=== PATIENT | female | born 1985 | race Caucasian/White ===

== ENCOUNTER 2022-10-31 16:26 | Emergency (ER) | payer OTHER ==
[2022-10-31 17:14] VITALS: TEMP 98
[2022-10-31] MEDS ORDERED: Sodium Chloride 0.9% 1000 ML 1,000 ML IV STA (17:22)
[2022-10-31] MEDS ORDERED: Zofran 4 MG/2 ML VIAL IV ONE (17:22)
[2022-10-31] MEDS ORDERED: Zofran 4 MG/2 ML VIAL ONE (17:32)
[2022-10-31] MEDS ORDERED: Sodium Chloride 0.9% 1000 ML 1,000 ML ONE (17:32)
--- NOTE | 2022-10-31 17:48 | ERPHSYRPT ---
- History of Present Illness Time Seen by Provider: 10/31/22 17:42 Source: patient, family Exam Limitations: no limitations Patient Subjective Stated Complaint: C/O nausea, headache, loss of taste since . Triage Nursing Assessment: Patient is alert and oriented. No SOB. No cough noted at this time during assessment. Abdomen is not tender upon palpation. Bowel sounds present. Skin tone normal. HOFFMAN WNL. Physician History: pt has been vomiting and has fever past few days and exposed to COvid. No abd pain. Nontender without peritoneal signs, mass or distension. chest clear. ht reg without M. No rash. Normal neuro and mental status. Hx confirmed from family helping pt to recall details as independent source. Discussed riskls/benefits of CBC. CMP, Lipase, UA, Ondansatron, IVF, Amylase, Lactate, and they wish to proceed and agree they do not wish CT imaging at this time since no abd pain or findings. These were ordered, and results discussed with pt and family as received. Timing/Duration: day(s) Severity: moderate Associated Symptoms: nausea, headaches Allergies/Adverse Reactions: aspirin Allergy (Verified 10/31/22 17:04) cephalexin [From Keflex] Allergy (Verified 10/31/22 17:04) Penicillins Allergy (Verified 10/31/22 17:04) Home Medications: No Reportable Medications [No Reported Medications] 10/31/22 [History] Hx Tetanus, Diphtheria Vaccination/Date Given: Yes Hx Influenza Vaccination/Date Given: No Hx Pneumococcal Vaccination/Date Given: No Immunizations Up to Date: Yes Travel Risk - International Travel Have you traveled outside of the country in past 3 weeks: No - Coronavirus Screening Are you exhibiting any of the following symptoms?: Yes Symptoms: Cough: New Onset, Vomiting/Diarrhea, Loss of Taste or Smell, Headaches/Body Aches/Fatigue Close contact with a COVID-19 positive Pt in past 14-21 Days: Yes - Vaccine Status Have you recieved a Covid-19 vaccination: No - Review of Systems Constitutional: Fever, No Chills Eyes: No Symptoms Ears, Nose, & Throat: No Symptoms Respiratory: No Cough, No Dyspnea Cardiac: No Chest Pain, No Edema, No Syncope Abdominal/Gastrointestinal: Nausea, Vomiting, No Abdominal Pain, No Diarrhea Genitourinary Symptoms: No Dysuria Musculoskeletal: No Back Pain, No Neck Pain Skin: No Rash Neurological: Headache, No Dizziness, No Focal Weakness, No Sensory Changes Psychological: No Symptoms Endocrine: No Symptoms Hematologic/Lymphatic: No Symptoms Immunological/Allergic: No Symptoms All Other Systems: Reviewed and Negative - Past Medical History Pertinent Past Medical History: Yes GI Medical History: Gallbladder Disease 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 - Past Surgical History Past Surgical History: Yes Gastrointestinal: Cholecystectomy Female Surgical History: Tubal Ligation Other Surgical History: back (spider bite with wound vac) - Social History Smoking Status: Current every day smoker Exposure to second hand smoke: Yes Drug Use: none Patient Lives Alone: No - Female History Hx Now: No (tubes removed) - Nursing Vital Signs Nursing Vital Signs: Initial Vital Signs Temperature 98 F 10/31/22 16:27 Pulse Rate 70 10/31/22 16:27 Respiratory Rate 18 10/31/22 16:27 Blood Pressure 133/92 10/31/22 16:27 O2 Sat by Pulse Oximetry 99 10/31/22 16:27 Pain Scale Pain Intensity 8 - Physical Exam General Appearance: no apparent distress, alert Eye Exam: PERRL/EOMI, eyes nml inspection Ears, Nose, Throat Exam: normal ENT inspection, TMs normal, pharynx normal, moist mucous membranes Neck Exam: normal inspection, non-tender, supple, full range of motion Respiratory Exam: normal breath sounds, lungs clear, No respiratory distress Cardiovascular Exam: regular rate/rhythm, normal heart sounds, normal peripheral pulses Gastrointestinal/Abdomen Exam: soft, normal bowel sounds, No tenderness, No mass Pelvic Exam: deferred Rectal Exam: deferred Back Exam: normal inspection, normal range of motion, No CVA tenderness, No vertebral tenderness Extremity Exam: normal inspection, normal range of motion, pelvis stable Neurologic Exam: alert, oriented x 3, cooperative, normal mood/affect, nml cerebellar function, nml station & gait, sensation nml, No motor deficits Skin Exam: normal color, warm, dry, No rash Lymphatic Exam: No adenopathy SpO2 Interpretation: normal SpO2: 98 O2 Delivery: Room Air - Course Nursing assessment & vital signs reviewed: Yes Ordered Tests: Active Orders 24 hr Category Date Time Status IV Insertion STAT Care 10/31/22 17:22 Active AMYLASE Stat Lab 10/31/22 17:35 Completed CBC W DIFF Stat Lab 10/31/22 17:35 Completed HCG QUALITATIVE, SERUM Stat Lab 10/31/22 17:35 Completed Hepatic Function Panel Stat Lab 10/31/22 17:35 Completed LIPASE Stat Lab 10/31/22 17:35 Completed Lactic Acid Stat Lab 10/31/22 17:32 Completed Medication Summary Discontinued Medications Generic Name Dose Route Start Last Admin Trade Name Jaceq PRN Reason Stop Dose Admin Diphenhydramine HCl 25 mg 10/31/22 19:17 10/31/22 19:36 Diphenhydramine Hcl 50 Mg/Ml Vial IV 10/31/22 19:18 25 mg STAT ONE Administration Diphenhydramine HCl Confirm 10/31/22 19:34 Diphenhydramine Hcl 50 Mg/Ml Vial Administered 10/31/22 19:35 Dose 50 mg .ROUTE .STK-MED ONE Sodium Chloride 1,000 mls @ 999 mls/hr 10/31/22 17:22 10/31/22 18:34 Sodium Chloride 0.9% 1000 Ml IV 10/31/22 18:22 Infused .Q1H1M STA Infusion Sodium Chloride Confirm 10/31/22 17:32 Sodium Chloride 0.9% 1000 Ml Administered 10/31/22 17:33 Dose 1,000 mls @ ud .ROUTE .STK-MED ONE Metoclopramide HCl 10 mg 10/31/22 19:17 10/31/22 19:37 Metoclopramide Hcl 10 Mg/2 Ml Vial IV 10/31/22 19:18 10 mg STAT ONE Administration Metoclopramide HCl Confirm 10/31/22 19:34 Metoclopramide Hcl 10 Mg/2 Ml Vial Administered 10/31/22 19:35 Dose 10 mg .ROUTE .STK-MED ONE Ondansetron HCl 4 mg 10/31/22 17:22 10/31/22 17:33 Ondansetron Hcl 4 Mg/2 Ml Vial IV 10/31/22 17:23 4 mg STAT ONE Administration Ondansetron HCl Confirm 10/31/22 17:32 Ondansetron Hcl 4 Mg/2 Ml Vial Administered 10/31/22 17:33 Dose 4 mg .ROUTE .STK-MED ONE Lab/Rad Data: Laboratory Result Diagrams 10/31/22 17:35 Laboratory Results 10/31/22 10/31/22 10/31/22 Range/Units 17:35 17:35 17:35 WBC 8.5 (4.0-10.5) x10^3/uL RBC 4.58 (4.1-5.4) x10^6/uL Hgb 14.6 (12.0-16.0) g/dL Hct 45.0 (35-47) % MCV 98.3 (78-100) fL MCH 31.9 (26-32) pg MCHC 32.4 (32-36) g/dL RDW 12.2 (11.5-14.0) % Plt Count 315 (150-450) x10^3/uL MPV 10.1 (7.5-11.0) fL Gran % 62.2 (36.0-66.0) % Immature Gran % (Auto) 0.2 (0.00-0.4) % Nucleat RBC Rel Count 0.0 (0.00-0.1) % Eos # (Auto) 0.22 (0-0.5) x10^3/uL Immature Gran # (Auto) 0.02 (0.00-0.03) x10^3u/L Absolute Lymphs (auto) 2.25 (1.0-4.6) x10^3/uL Absolute Monos (auto) 0.57 (0.0-1.3) x10^3/uL Absolute Nucleated RBC 0.00 (0.00-0.01) x10^3u/L Lymphocytes % 26.5 (24.0-44.0) % Monocytes % 6.7 (0.0-12.0) % Eosinophils % 2.6 (0.00-5.0) % Basophils % 1.8 (0.0-0.4) % Absolute Granulocytes 5.29 (1.4-6.9) x10^3/uL Basophils # 0.15 (0-0.4) x10^3/uL Lactic Acid (0.4-2.0) Total Bilirubin 0.20 (0.2-1.3) mg/dL Direct Bilirubin 0 (0.0-0.4) mg/dL AST 19 (14-36) U/L ALT 25 (0-35) U/L Alkaline Phosphatase 63 (38-126) U/L Serum Total Protein 7.2 (6.3-8.2) g/dL Albumin 4.4 (3.5-5.0) g/dL Amylase 87 (30-110) U/L Lipase 97 (23-300) U/L Serum HCG, Qual NEGATIVE (NEGATIVE) Influenza Type A Ag (NEGATIVE) Influenza Type B Ag (NEGATIVE) RSV (PCR) (NEGATIVE) SARS-CoV-2 (PCR) (NEGATIVE) 10/31/22 10/31/22 Range/Units 17:32 17:14 WBC (4.0-10.5) x10^3/uL RBC (4.1-5.4) x10^6/uL Hgb (12.0-16.0) g/dL Hct (35-47) % MCV (78-100) fL MCH (26-32) pg MCHC (32-36) g/dL RDW (11.5-14.0) % Plt Count (150-450) x10^3/uL MPV (7.5-11.0) fL Gran % (36.0-66.0) % Immature Gran % (Auto) (0.00-0.4) % Nucleat RBC Rel Count (0.00-0.1) % Eos # (Auto) (0-0.5) x10^3/uL Immature Gran # (Auto) (0.00-0.03) x10^3u/L Absolute Lymphs (auto) (1.0-4.6) x10^3/uL Absolute Monos (auto) (0.0-1.3) x10^3/uL Absolute Nucleated RBC (0.00-0.01) x10^3u/L Lymphocytes % (24.0-44.0) % Monocytes % (0.0-12.0) % Eosinophils % (0.00-5.0) % Basophils % (0.0-0.4) % Absolute Granulocytes (1.4-6.9) x10^3/uL Basophils # (0-0.4) x10^3/uL Lactic Acid 0.9 (0.4-2.0) Total Bilirubin (0.2-1.3) mg/dL Direct Bilirubin (0.0-0.4) mg/dL AST (14-36) U/L ALT (0-35) U/L Alkaline Phosphatase (38-126) U/L Serum Total Protein (6.3-8.2) g/dL Albumin (3.5-5.0) g/dL Amylase (30-110) U/L Lipase (23-300) U/L Serum HCG, Qual (NEGATIVE) Influenza Type A Ag NEGATIVE (NEGATIVE) Influenza Type B Ag NEGATIVE (NEGATIVE) RSV (PCR) NEGATIVE (NEGATIVE) SARS-CoV-2 (PCR) NEGATIVE (NEGATIVE) - Progress Progress: improved, re-examined Progress Note: 10/31/22 19:18 discussed with pt and she wishes tx migraine with metaclop and benadryl and she wishes to proceed. 10/31/22 21:03 pt symptoms resolved - I advised her that there still can be undetected patology evolving and we have not determined a cause and therefore f/u is advised and she prefers, oupt rather than furhter obs in ER and has the capcity to make this choice. Counseled pt/family regarding: lab results, diagnosis, need for follow-up Medical Desision Making - Independent Historian Additional History obtained from: Family - Diagnostic Testing Diagnostic test were ordered, analyzed, and reviewed by me: Yes Radiological Interpretation: Reviewed by me - Risk of complications The pt has a high risk of morbidity or mortality based on: Decision regarding hospitilization or escalation of hosp level of care - Departure Departure Disposition: Home Clinical Impression: nausea and symptoms unknown cause Condition: Good Critical Care Time: No Referrals: DOCTOR,NO FAMILY [Primary Care Provider] - Follow up/PCP as directed Instructions: Nausea and Vomiting, Adult (DC) Additional Instructions: followup with your Dr. as we have not determined the cause of your symptoms and you need further workup. return meantime if abdominal pain, unable to tolerate fluids / eating, dizziness, short of breath or other concerns.
[2022-10-31 17:52] LABS: INFLUENZA A NEGATIVE (NEGATIVE); INFLUENZA B NEGATIVE (NEGATIVE); RESPIRATORY SYNCTIAL VIRUS NEGATIVE (NEGATIVE); SARS-CoV-2 Xpert Express NEGATIVE (NEGATIVE)
[2022-10-31 17:58] LABS: Absolute Neutrophil Ct (ANC) 5.29 x10^3/uL (1.4-6.9); BASOPHIL % 1.8 % (0.0-0.4); Basophil (Absolute #) 0.15 x10^3/uL (0-0.4); Eosinophil % 2.6 % (0.00-5.0); Eosinophil (Absolute #) 0.22 x10^3/uL (0-0.5); Hemoglobin 14.6 g/dL (12.0-16.0); IMMATURE GRAN # 0.02 x10^3u/L (0.00-0.03); IMMATURE GRAN % 0.2 % (0.00-0.4); Lymphocyte (Absolute #) 2.25 x10^3/uL (1.0-4.6); Lymphocytes % 26.5 % (24.0-44.0); Mean Cell Volume 98.3 fL (78-100); Mean Corpuscular Hemoglobin 31.9 pg (26-32); Mean Corpuscular Hgb Concent. 32.4 g/dL (32-36); Mean Platelet Volume 10.1 fL (7.5-11.0); Monocyte (Absolute #) 0.57 x10^3/uL (0.0-1.3); Monocytes % 6.7 % (0.0-12.0); Neutrophil % 62.2 % (36.0-66.0); Platelet Count 315 x10^3/uL (150-450); Red Blood Count 4.58 x10^6/uL (4.1-5.4); Red Cell Distribution Width 12.2 % (11.5-14.0); White Blood Count 8.5 x10^3/uL (4.0-10.5)
[2022-10-31 18:07] LABS: ALBUMIN 4.4 g/dL (3.5-5.0); BILIRUBIN,TOTAL 0.2 mg/dL (0.2-1.3); Total Protein 7.2 g/dL (6.3-8.2)
[2022-10-31 18:13] LABS: HCG SERUM TEST NEGATIVE (NEGATIVE)
[2022-10-31] MEDS ORDERED: Reglan 10 MG/2 ML IV ONE (19:17)
[2022-10-31] MEDS ORDERED: BENADRYL 50 MG/ML IV ONE (19:17)
[2022-10-31 19:31] VITALS: RESP 16
[2022-10-31] MEDS ORDERED: BENADRYL 50 MG/ML ONE (19:34)
[2022-10-31] MEDS ORDERED: Reglan 10 MG/2 ML ONE (19:34)
[2022-10-31 21:07] VITALS: O2SAT 98
[2022-10-31 21:19] VITALS: BP 106/64; PULSE 52
== END 2022-10-31 21:21 | disposition home or self-care (01) ==
LOC: ED 16:26
DX: R11.2 Nausea with vomiting, unspecified (principal); R50.9 Fever, unspecified; R51.9 Headache, unspecified; Z28.310 Unvaccinated for COVID-19; Z72.0 Tobacco use
CPT/HCPCS: 0241U; 36415; 80076; 82150; 83605; 83690; 84703; 85025; 96360; 96374; 96375; 99284; J1200; J2405